=== PATIENT | male | born 2000 | race Caucasian/White ===

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

== ENCOUNTER 2020-08-14 20:02 | Emergency (ER) | payer OTHER ==
[2020-08-14 20:06] VITALS: BP 125/75; PULSE 102; RESP 18; TEMP 98.4
--- NOTE | 2020-08-14 20:18 | ED ---
General Adult HPI - General Chief complaint: Extremity Injury, Upper Stated complaint: Hand Injury Time Seen by Provider: 08/14/20 20:10 Source: patient, RN notes reviewed Mode of arrival: ambulatory Limitations: no limitations - History of Present Illness Initial comments: Patient is a pleasant 19-year-old male presenting to the emergency Department wi th right hand injury. Patient states he was trying to punch a punching bag that he missed and struck the wall behind it. Patient does have discomfort that is somewhat severe of the hand just proximal to the pinky. Patient has noticed some swelling. Patient states it hurts to move the finger. No other area of injury or concern. Patient believes his tetanus immunization is up-to-date - Related Data Home Medications Medication Instructions Recorded Confirmed Albuterol Sulfate [Proair Hfa] 1 - 2 puff INHALATION RT-Q6H PRN 09/20/19 09/20/19 Previous Rx's Medication Instructions Recorded Azithromycin [Zithromax] 500 mg PO DAILY #3 tab 09/21/19 Beclomethasone Dip 80 Mcg/Puff 1 puff INHALATION BID #1 puff 09/21/19 [Qvar] predniSONE 10 mg PO DAILY #30 tab 09/21/19 Allergies Allergy/AdvReac Type Severity Reaction Status Date / Time No Known Allergies Allergy Verified 08/14/20 20:07 Review of Systems ROS Statement: Those systems with pertinent positive or pertinent negative responses have been documented in the HPI. ROS Other: All systems not noted in ROS Statement are negative. Constitutional: Denies: fever Eyes: Denies: eye pain ENT: Denies: ear pain Respiratory: Denies: cough Cardiovascular: Denies: chest pain Past Medical History Past Medical History: Asthma History of Any Multi-Drug Resistant Organisms: None Reported Past Surgical History: No Surgical Hx Reported Past Psychological History: No Psychological Hx Reported Smoking Status: Current some day smoker Past Alcohol Use History: None Reported Past Drug Use History: None Reported General Exam Limitations: no limitations General appearance: alert, in no apparent distress Head exam: Present: atraumatic Respiratory exam: Present: normal lung sounds bilaterally Cardiovascular Exam: Present: regular rate, normal rhythm Extremities exam: Present: other (Right hand with swelling and tenderness proximal to the fifth MCP. Pain with range of motion of the pinky. Cap refill less than 2 seconds. Sensation is intact) Neurological exam: Present: alert Psychiatric exam: Present: normal affect, normal mood Skin exam: Present: other (Small abrasion right ring finger) Course Vital Signs 08/14/20 20:03 Temperature 98.4 F Pulse Rate 102 H Respiratory 18 Rate Blood Pressure 125/75 O2 Sat by Pulse 99 Oximetry Procedures - Orthopedic Splinting/Casting Injury #1 Side: right Upper Extremity Injury Location: short arm Upper Extremity Immobilizer: ulnar gutter Additional Comments: Examined postplacement with neurovascular intact and good alignment Medical Decision Making - Radiology Data Radiology results: image reviewed (Right hand x-ray shows fifth metacarpal fracture, distal) Disposition Clinical Impression: Metacarpal bone fracture Disposition: HOME SELF-CARE Condition: Stable Instructions (If sedation given, give patient instructions): Hand Fracture (ED) Additional Instructions: Ice to affected area. [id number] Tylenol or Motrin as needed. Return for increased pain, swelling, worsening symptoms or other concerns. Please follow- up with orthopedics in the next couple days for recheck. Is patient prescribed a controlled substance at d/c from ED?: No Referrals: Chucky Wharton MD [Primary Care Provider] - 1-2 days Judd Hoyt DO [Doctor of Osteopathic Medicine] - 1-2 days Time of Disposition: 20:34
[2020-08-14] MEDS ORDERED: ACET/COD 300 MG/30 MG STARTER PACK 6 TAB BTL PO STA (20:34)
--- NOTE | 2020-08-14 20:37 | XR ---
EXAMINATION TYPE: XR hand complete RT DATE OF EXAM: 08/14/2020 COMPARISON: NONE HISTORY: Pain and swelling TECHNIQUE: 3 views FINDINGS: There is comminuted slightly impacted fracture of the neck of the fifth metacarpal head. Th ere is no dislocation. Joint spaces are normal. IMPRESSION: There is acute impacted comminuted boxer fracture of the fifth metacarpal.
== END 2020-08-14 20:55 | disposition home or self-care (01) ==
LOC: EC 20:02
DX: J45.909 Unspecified asthma, uncomplicated (principal); F17.200 Nicotine dependence, unspecified, uncomplicated; S62.336A Displaced fracture of neck of fifth metacarpal bone, right hand, initial encounter for closed fracture; S60.414A Abrasion of right ring finger, initial encounter; W22.01XA Walked into wall, initial encounter; Y93.89 Activity, other specified
CPT/HCPCS: 29125; 99283

== ENCOUNTER 2021-07-10 09:16 | Emergency (ER) | payer OTHER ==
[2021-07-10 10:09] VITALS: RESP 18; TEMP 96
[2021-07-10 10:31] LABS: Appearance,Urine Cloudy (Clear); Bilirubin,Urine Negative (Negative); Blood,Urine Negative (Negative); Color,Urine Yellow; Glucose,Urine (UA) Negative (Negative); Ketones,Urine Negative (Negative); Leukocyte Esterase,Urine Negative (Negative); Mucus,Urine Rare /hpf; Nitrite,Urine Negative (Negative); PH, Urine 6.5 (5.0-8.0); Protein,Urine Negative (Negative); RBC,Urine <1 /hpf (0-5); Specific Gravity,Urine 1.023 (1.001-1.035); Urobilinogen,Urine <2.0 mg/dL (<2.0); WBC,Urine 1 /hpf (0-5)
--- NOTE | 2021-07-10 10:55 | US ---
EXAMINATION TYPE: US scrotum with doppler. Grayscale and color Doppler Duplex imaging performed of madie joseph scrotum. DATE OF EXAM: 07/10/2021 COMPARISON: US 2014 CLINICAL HISTORY: pain. Left testicular pain x couple days EXAM MEASUREMENTS: TESTICLES: Right Testicle: 4.3 x 2.0 x 3.0 cm Left Testicle: 4.4 x 2.1 x 3.2 cm EPIDIDYMIS HEAD: Right Epididymis: 1.3 cm Left Epididymis: 1.1 cm Doppler performed to assess for testicular vascularity; good bilateral color flow and waveforms are s een. There is no evidence of testicular torsion. Presence of hydroceles: no Presence of varicoceles: no IMPRESSION: 1. No abnormality identified
--- NOTE | 2021-07-10 11:01 | ED ---
Abdominal Pain HPI - General Chief Complaint: Abdominal Pain Stated Complaint: Male , testicular torsion Time Seen by Provider: 07/10/21 10:10 Source: patient, family, RN notes reviewed Mode of arrival: ambulatory Limitations: no limitations - History of Present Illness Initial Comments: This a 20-year-old male presents emergency Department with chief complaint of testicular pain. Patient states started they're stable worse today. Patient states that he told he had portion in middle school but states that it would resolve on its own. Patient states that pain went away denies any trauma no dysuria does have some urinary frequency. Patient denies any fevers chills no mental abdominal pain no other complaints. - Related Data Home Medications Medication Instructions Recorded Confirmed Albuterol Sulfate [Proair Hfa] 1 - 2 puff INHALATION RT-Q6H PRN 09/20/19 09/20/19 Previous Rx's Medication Instructions Recorded Azithromycin [Zithromax] 500 mg PO DAILY #3 tab 09/21/19 Beclomethasone Dip 80 Mcg/Puff 1 puff INHALATION BID #1 puff 09/21/19 [Qvar] predniSONE 10 mg PO DAILY #30 tab 09/21/19 Allergies Allergy/AdvReac Type Severity Reaction Status Date / Time No Known Allergies Allergy Verified 07/10/21 10:09 Review of Systems ROS Statement: Those systems with pertinent positive or pertinent negative responses have been documented in the HPI. ROS Other: All systems not noted in ROS Statement are negative. Past Medical History Past Medical History: Asthma Additional Past Medical History / Comment(s): testicular torsion History of Any Multi-Drug Resistant Organisms: None Reported Past Surgical History: No Surgical Hx Reported Past Psychological History: No Psychological Hx Reported Smoking Status: Current some day smoker Past Alcohol Use History: None Reported Past Drug Use History: None Reported General Exam Limitations: no limitations General appearance: alert, in no apparent distress Head exam: Present: atraumatic, normocephalic, normal inspection Respiratory exam: Present: normal lung sounds bilaterally. Absent: respiratory distress, wheezes, rales, rhonchi, stridor Cardiovascular Exam: Present: regular rate, normal rhythm, normal heart sounds. Absent: systolic murmur, diastolic murmur, rubs, gallop, clicks GI/Abdominal exam: Present: soft, normal bowel sounds. Absent: distended, tenderness, guarding, rebound, rigid exam: Present: normal inspection Neurological exam: Present: alert, oriented X3, CN II-XII intact Course Vital Signs 07/10/21 10:05 Temperature 96.0 F L Pulse Rate 71 Respiratory 18 Rate Blood Pressure 117/74 O2 Sat by Pulse 100 Oximetry Medical Decision Making - Medical Decision Making Ultrasound urinalysis is unremarkable. Patient be started on anti- inflammatories return parameters were discussed. - Lab Data Lab Results 07/10/21 Range/Units 10:18 Urine Color Yellow Urine Appearance Cloudy (Clear) Urine pH 6.5 (5.0-8.0) Ur Specific [place] 1.023 (1.001-1.035) Urine Protein Negative (Negative) Urine Glucose (UA) Negative (Negative) Urine Ketones Negative (Negative) Urine Blood Negative (Negative) Urine Nitrite Negative (Negative) Urine Bilirubin Negative (Negative) Urine Urobilinogen <2.0 (<2.0) mg/dL Ur Leukocyte Esterase Negative (Negative) Urine RBC <1 (0-5) /hpf Urine WBC 1 (0-5) /hpf Urine Mucus Rare H (None) /hpf Disposition Clinical Impression: Testicular/scrotal pain Disposition: HOME SELF-CARE Condition: Stable Instructions (If sedation given, give patient instructions): Testicle Pain (ED) Additional Instructions: Please return to the Emergency Department if symptoms worsen or any other concerns. Is patient prescribed a controlled substance at d/c from ED?: No Referrals: Chucky Wharton MD [Primary Care Provider] - 1-2 days Glenn Phelan MD [STAFF PHYSICIAN] - 1-2 days
[2021-07-10 11:17] VITALS: BP 111/66; PULSE 66
== END 2021-07-10 11:32 | disposition home or self-care (01) ==
LOC: EC 09:16
DX: N50.82 Scrotal pain (principal); J45.909 Unspecified asthma, uncomplicated; F17.200 Nicotine dependence, unspecified, uncomplicated
CPT/HCPCS: 76870; 81001; 93975; 99284

== ENCOUNTER 2022-02-13 14:26 | Emergency (ER) | payer OTHER ==
[2022-02-13 14:36] VITALS: RESP 16; TEMP 98.6
--- NOTE | 2022-02-13 15:13 | CT ---
EXAMINATION TYPE: CT brain malaika wo con DATE OF EXAM: 02/13/2022 COMPARISON: None HISTORY: 21-year-old male, syncopal episode. Raised bump on back of skull CT DLP: 1338.2 mGycm Automated exposure control for dose reduction was used. Technique: Examination of the head was done in axial plane without intravenous contrast. Coronal and sagittal reconstructions performed. CT of the cervical spine was obtained in axial plane without intravenous injection of contrast mater ial. Coronal and sagittal reformatted images were obtained from the axial views for evaluation of f ractures, spinal alignment and canal. FINDINGS: Head: There is no evidence of acute intracranial hemorrhage, acute ischemic changes, mass, mass-effect, or extra-axial fluid collection. There is no effacement of cerebral sulci or basal subarachnoid cister ns. There is no hydrocephalus. There is no midline shift. Queen-white matter distinction is preserv ed. Minimal 2 mm of benign cerebellar tonsillar ectopia Mild mucosal thickening bilateral maxillary sinuses and trace within the air cells. [place]astoid air cells well pneumatized. Orbits and globes are intact. Mild scalp contusion posterior parieto-occipital region. No underlying calvarial fracture. Cervical spine: Prominent lymph nodes along both sides of neck measuring up to 1 cm short axis. Mild bilateral palati ne tonsillar hypertrophy. No convincing cervical junction of the body, predental space widening, or prevertebral soft tissue sw elling. Straightening of the normal cervical lordosis with preserved alignment. No acute fracture of the cervical spine. No evident spinal canal compromise or neuroforaminal stenosis. Sagittal and coronal reformatted images confirm above findings. COMBINED IMPRESSION: 1. Mild right-sided posterior scalp contusion. No acute intracranial abnormality seen. 2. No acute fracture or malalignment of the cervical spine.
[2022-02-13 15:26] LABS: Appearance,Urine Clear (Clear); Bilirubin,Urine Negative (Negative); Blood,Urine Negative (Negative); Color,Urine Light Yellow; Glucose,Urine (UA) Negative (Negative); Ketones,Urine Negative (Negative); Leukocyte Esterase,Urine Negative (Negative); Nitrite,Urine Negative (Negative); Protein,Urine Negative (Negative); Specific Gravity,Urine 1.011 (1.001-1.035); Urobilinogen,Urine <2.0 mg/dL (<2.0)
[2022-02-13] MEDS ORDERED: KETOROLAC 15 MG/ML 1 ML VIAL IVP STA (15:34)
[2022-02-13] MEDS ORDERED: SODIUM CHLORIDE 0.9% 1,000 ML IV STA (15:34)
--- NOTE | 2022-02-13 15:52 | ED ---
General Adult HPI - General Chief complaint: Syncope Stated complaint: Head Trauma Time Seen by Provider: 02/13/22 15:25 Source: patient, RN notes reviewed, old records reviewed Mode of arrival: ambulatory Limitations: no limitations - History of Present Illness Initial comments: Patient is a 21-year-old male with no significant past medical history except for mild asthma who presents emergency Department complaining of a syncopal episode while at work. Was doing heavy lifting all day this morning. States he did eat this morning and was transferred to stay hydrated. It is a hot day today. Following heavy lifting, he leaned backwards and expenses syncopal episode at that time. Said he felt a head heavy feeling just prior to this. Denies any chest pain, shortness of breath, abdominal pain, nausea, vomiting. Denies any drug use other than marijuana occasionally. Denies any alcohol use. His no other acute complaint at this time. Does endorse a mild headache located over the posterior aspect of his skull secondary to a contusion at the site. Presents after obtaining CT of the C-spine, head while waiting in triage. - Related Data Home Medications Medication Instructions Recorded Confirmed Albuterol Sulfate [Proair Hfa] 1 - 2 puff INHALATION RT-Q6H PRN 09/20/19 02/13/22 Albuterol Nebulized [Ventolin 2.5 mg INHALATION RT-Q4H PRN 02/13/22 02/13/22 Nebulized] Beclomethasone Dip 80 Mcg/Puff 2 puff INHALATION RT-DAILY 02/13/22 02/13/22 [Qvar] Dextroamphetamine/Amphetamine 30 mg PO BID@0500,1300 02/13/22 02/13/22 [Adderall] Allergies Allergy/AdvReac Type Severity Reaction Status Date / Time No Known Allergies Allergy Verified 02/13/22 16:39 Review of Systems ROS Statement: Those systems with pertinent positive or pertinent negative responses have been documented in the HPI. Review of Systems: CONST: Denies fever EYES: Denies blurry vision ENT: Denies nasal congestion C/V: Denies Chest pain RESP: Denies shortness of breath GI: Denies abdominal pain : Denies dysuria SKIN: Denies rash. MSK: Denies joint pain. NEURO: Endorses mild headache ROS Other: All systems not noted in ROS Statement are negative. Past Medical History Past Medical History: Asthma Additional Past Medical History / Comment(s): testicular torsion History of Any Multi-Drug Resistant Organisms: None Reported Past Surgical History: No Surgical Hx Reported Past Psychological History: No Psychological Hx Reported Smoking Status: Current every day smoker Past Alcohol Use History: None Reported Past Drug Use History: None Reported General Exam - General Exam Comments Initial Comments: General: Appears in no acute distress. HEAD: Patient has a contusion located over the posterior right aspect of the skull. No obvious laceration or abrasion. EYES: PERRLA, EOMI, conjunctiva normal, no discharge. Pupils are 3 mm and equal bilaterally. ENT: Hearing grossly intact, normal oropharynx. RESPIRATORY: Clear breath sounds bilaterally. No wheezes, rales, or rhonchi. C/V: Regular rate and rhythm. S1 and S2 auscultated, no edema, peripheral pulses 2+ and intact throughout ABD: Abd is soft, nontender, nondistended EXT: Normal range of motion, no obvious deformity SKIN: No rashes or lesions observed on exposed skin. NEURO: Alert and oriented x 4. Cranial nerves II-XII intact. No focal sensory or strength deficits. GCS of 15. Patient able to ambulate without difficulty. No focal deficits. Limitations: no limitations Course Vital Signs 02/13/22 02/13/22 14:33 16:46 Temperature 98.6 F Pulse Rate 79 74 Respiratory 16 Rate Blood Pressure 121/69 O2 Sat by Pulse 99 Oximetry Medical Decision Making - Medical Decision Making Based on the patient's presentation and physical exam, and concern for what sounds like a syncopal episode at work. Could be multiple etiologies but likely related to dehydration. Screening EKG will CT imaging was already obtained while the patient was in triage and revealed a contusion located over the posterior scalp. No acute intracranial process. No Acute fracture of the cervical spine. Patient will be given IV fluids as well as IV Toradol. We will obtain basic laboratory studies as well as urine studies. Patient was in agreement this plan. EKG showed no signs of ischemia. Patient's laboratory studies are all unremarkable. There are within normal limits. On reevaluation, patient is improved. Vital signs are stable and unchanged. I discussed results with him. He would like to go home I believe this is reasonable. We discussed proper hydration. I instructed the patient to follow up with their PCP in the next 3 days. I explained that the patient should return to the emergency department if they experience any worsening symptoms. Strict return precautions were discussed with the patient. The patient expressed understanding of these instructions. I answered all questions that the patient had. The patient was discharged home in good condition with their prescriptions and follow up information. - Lab Data Result diagrams: 02/13/22 15:54 02/13/22 15:54 Lab Results 02/13/22 02/13/22 02/13/22 Range/Units 14:57 15:54 15:54 WBC 5.5 (3.8-10.6) k/uL RBC 4.67 (4.30-5.90) m/uL Hgb 14.2 (13.0-17.5) gm/dL Hct 42.5 (39.0-53.0) % MCV 91.0 (80.0-100.0) fL MCH 30.4 (25.0-35.0) pg MCHC 33.4 (31.0-37.0) g/dL RDW 12.2 (11.5-15.5) % Plt Count 192 (150-450) k/uL MPV 7.5 Neutrophils % 65 % Lymphocytes % 24 % Monocytes % 6 % Eosinophils % 2 % Basophils % 1 % Neutrophils # 3.6 (1.3-7.7) k/uL Lymphocytes # 1.3 (1.0-4.8) k/uL Monocytes # 0.4 (0-1.0) k/uL Eosinophils # 0.1 (0-0.7) k/uL Basophils # 0.1 (0-0.2) k/uL Sodium 139 (137-145) mmol/L Potassium 3.9 (3.5-5.1) mmol/L Chloride 104 (98-107) mmol/L Carbon Dioxide 27 (22-30) mmol/L Anion Gap 8 mmol/L BUN 14 (9-20) mg/dL Creatinine 0.82 (0.66-1.25) mg/dL Est GFR (CKD-EPI)AfAm >90 (>60 ml/min/1.73 sqM) Est GFR (CKD-EPI)NonAf >90 (>60 ml/min/1.73 sqM) Glucose 91 (74-99) mg/dL Calcium 9.5 (8.4-10.2) mg/dL Magnesium 1.7 (1.6-2.3) mg/dL Urine Color Light Yellow Urine Appearance Clear (Clear) Urine pH 6.0 (5.0-8.0) Ur Specific [place] 1.011 (1.001-1.035) Urine Protein Negative (Negative) Urine Glucose (UA) Negative (Negative) Urine Ketones Negative (Negative) Urine Blood Negative (Negative) Urine Nitrite Negative (Negative) Urine Bilirubin Negative (Negative) Urine Urobilinogen <2.0 (<2.0) mg/dL Ur Leukocyte Esterase Negative (Negative) - EKG Data -: EKG Interpreted by Me EKG Comments: 12-lead Electrocardiogram Interpretation Note EKG was reviewed and interpreted by myself. 12-lead ECG performed at 1440 is interpreted by me as revealing normal sinus rhythm at a rate of 64 beats per minute. [place] is normal. [place] interval is 140 ms, QRS duration is 86 ms, QTc is 11/15/1962 milliseconds.. There were no ST or T wave abnormalities to suggest myocardial ischemia or injury. R wave progression across the precordium was satisfactory. By my interpretation this EKG is non-diagnostic for acute ischemia . Disposition Clinical Impression: Contusion of head, Syncope Disposition: HOME SELF-CARE Condition: Good Instructions (If sedation given, give patient instructions): Syncope (ED) Is patient prescribed a controlled substance at d/c from ED?: No Referrals: Chucky Wharton MD [Primary Care Provider] - 1-2 days Time of Disposition: 16:35
[2022-02-13 15:58] LABS: Basophils # (A) 0.1 k/uL (0-0.2); Basophils % (A) 1 %; Eosinophils # (A) 0.1 k/uL (0-0.7); Eosinophils % (A) 2 %; HCT 42.5 % (39.0-53.0); HGB 14.2 gm/dL (13.0-17.5); Lymphocytes # (A) 1.3 k/uL (1.0-4.8); Lymphocytes % (A) 24 %; MCH 30.4 pg (25.0-35.0); MCHC 33.4 g/dL (31.0-37.0); Mean Platelet Volume 7.5; Monocytes # (A) 0.4 k/uL (0-1.0); Monocytes % (A) 6 %; Neutrophils # (A) 3.6 k/uL (1.3-7.7); Neutrophils % (A) 65 %; Platelet Count 192 k/uL (150-450); RBC 4.67 m/uL (4.30-5.90); RDW 12.2 % (11.5-15.5); WBC 5.5 k/uL (3.8-10.6)
[2022-02-13 16:08] LABS: African American GFR (CKD) >90 (>60 ml/min/1.73 sqM); Anion Gap 8 mmol/L; Blood Urea Nitrogen 14 mg/dL (9-20); Calcium 9.5 mg/dL (8.4-10.2); Carbon Dioxide 27 mmol/L (22-30); Chloride 104 mmol/L (98-107); Glucose 91 mg/dL (74-99); Magnesium 1.7 mg/dL (1.6-2.3); Non-African American GFR(CKD) >90 (>60 ml/min/1.73 sqM); Potassium 3.9 mmol/L (3.5-5.1); Sodium 139 mmol/L (137-145)
[2022-02-13 16:46] VITALS: BP 121/69; PULSE 74
== END 2022-02-13 16:52 | disposition home or self-care (01) ==
LOC: EC 14:26
DX: S00.03XA Contusion of scalp, initial encounter (principal); R55 Syncope and collapse; J45.909 Unspecified asthma, uncomplicated; F17.200 Nicotine dependence, unspecified, uncomplicated; Z79.51 Long term (current) use of inhaled steroids; X58.XXXA Exposure to other specified factors, initial encounter; Y92.89 Other specified places as the place of occurrence of the external cause
CPT/HCPCS: 36415; 93005; 80048; 83735; 85025; 81003; 72125; 70450; 99284; 96374; 96361; J1885

== ENCOUNTER → 2022-12-21 | Outpatient (CLI) | payer OTHER ==
--- NOTE | 2022-12-22 08:35 | XR ---
EXAM TYPE: LUMBAR SPINE X RAY SERIES COMPARISON: 05/10/2012 HISTORY: Pain TECHNIQUE: 3 views are submitted. FINDINGS: Alignment is anatomic. The pedicles are intact. The transverse processes are intact. There is no s pondylolisthesis. Mild disc space narrowing L4-5. IMPRESSION: 1. Mild disc space narrowing L4-5. Consider follow-up MRI.
== END | disposition home or self-care (01) ==
LOC: RADXRMAIN 17:29
PROVIDERS: ATTEND Nurse Practitioner Adult Health
DX: M51.36 Other intervertebral disc degeneration, lumbar region (principal)
CPT/HCPCS: 72100